=== PATIENT | female | born 1980 | race Caucasian/White ===

== ENCOUNTER 2022-05-08 11:05 | Emergency (ER) | payer BC, SELFPAY ==
[2022-05-08 11:35] VITALS: BP 129/80; PULSE 89; RESP 18; TEMP 36.2; O2SAT 99; BMI 39.1
--- NOTE | 2022-05-08 11:41 | CRLHL7_ITS ---
For Patients: As a result of the Century Cures Act, medical imaging exams and procedure reports are released immediately into your electronic medical record. You may view this report before your referring provider. If you have questions, please contact your health care provider. Indication: RT FOOT PAIN POST TRAUMA Technique: Right foot 3 views. Comparison: None Findings: Plantar calcaneal spur. No fracture. Alignment normal. Bone island in the cuboid. Impression: No sign of acute injury. Dictated by Yoseph Leggett MD @ 05/08/2022 12:59:13 PM (Electronically Signed)
--- NOTE | 2022-05-09 00:23 | ED_ITS ---
HPI - Extremity Injury (Lower) General Chief Complaint: Extremity Pain/Injury, Lower Stated Complaint: Fell, right foot injury Time Seen by Provider: 05/08/22 12:45 History of Present Illness HPI Narrative: 41-year-old woman presenting to the emergency department with significant other with complaint of pain in the right foot. She believes she has sprained her right foot not injured her ankle. Apparently had left the house and had to return for getting something, somehow rolled her foot upon reentry. She describes a rolling over the medial distal aspect of her right foot. She has never injured this before. Is not able to bear weight. Has sustained a left ankle sprain before. No other injuries occurred. Has not treated this noting that she does not like to take medications. Has received an ice pack prior to my evaluation as well as imaging of her foot. By my read by the time I am seeing her in the three-view of the right foot a do not see any acute bony abnormality. There is calcaneal spur. Related Data Home Medications Medication Instructions Recorded Confirmed No Known Home Medications 05/08/22 05/08/22 Allergies Allergy/AdvReac Type Severity Reaction Status Date / Time No Known Drug Allergies Allergy Verified 05/08/22 11:41 Exam Narrative: Exam Narrative: Pleasant. Of good energy. Seated in a wheelchair. Ice pack on dorsal distal right foot. Breathing easily. Speaking easily. Cranial nerves 2-12 intact. Examining right lower extremity there is no tenderness about the ankle or to stressors of the calcaneus. No base of 5th metatarsal tenderness or over the navicular.. She does have marked tenderness on the instep of her foot on the plantar surface. Tenderness also along the distal aspects of the 1st and 2nd metatarsal. Flexion extension of the 2nd toe causes pain. Mild swelling over the distal forefoot. Const: Vital Signs, click to edit/add: Vital Signs - 24 hr 05/08/22 11:35 Temperature 97.1 F L Pulse Rate [Left P ulse Oximeter] 89 Respiratory Rate 18 Blood Pressure [Ri ght Upper Arm] 129/80 Pulse Oximetry 99 Oxygen Delivery Me thod Room Air Documenting provider has reviewed patient's vital signs: yes Course Course Hospital Course: X-rays reviewed as above. Did give Tyson wrap and wrapped on the ice pack. Dispensed postop sandal and crutches and after discussion of further mobility concerns did write a prescription for a kneeling scooter. Vital Signs Vital signs: Initial Vital Signs Temperature 97.1 F L 05/08/22 11:35 Temperature Source Temporal Artery Scan 05/08/22 11:35 Pulse Rate 89 05/08/22 11:35 Respiratory Rate 18 05/08/22 11:35 Blood Pressure 129/80 05/08/22 11:35 Blood Pressure Mean 96 05/08/22 11:35 Blood Pressure Position Sitting 05/08/22 11:35 Pulse Oximetry 99 05/08/22 11:35 Oxygen Delivery Method 05/08/22 11:35 Vital Signs Temperature 97.1 F L 05/08/22 11:35 Pulse Rate 89 05/08/22 11:35 Respiratory Rate 18 05/08/22 11:35 Blood Pressure 129/80 05/08/22 11:35 Pulse Oximetry 99 05/08/22 11:35 Oxygen Delivery Method 05/08/22 11:35 Temperature 97.1 F L 05/08/22 11:35 Pulse Rate 89 05/08/22 11:35 Respiratory Rate 18 05/08/22 11:35 Blood Pressure 129/80 05/08/22 11:35 Pulse Oximetry 99 05/08/22 11:35 Oxygen Delivery Method 05/08/22 11:35 MDM - Extremity Injury (Lower) Medical Records Attestation: I reviewed the patient's medical records. Discharge Plan Discharge Clinical Impression: Foot sprain Patient Disposition: Home w/ Parent or Adult Condition: Stable Additional Instructions: As discussed ice 2-3 times daily over the next few days. Elevate at rest. Rest otherwise by using crutches over the next few days and then slowly start bearing more weight. If truly not improved in 7-10 days please follow-up for re-evaluation. Prescription also written for kneeling walker/scooter if needed. See handout on rehabilitation/exercises. Prescriptions: No Action No Known Home Medications Stand Alone Forms: [employer] Info Instructions
== END 2022-05-08 13:35 | disposition home or self-care (01) ==
PROVIDERS: Emergency Provider Family Medicine
DX: S93.601A Unspecified sprain of right foot, initial encounter (principal); X50.0XXA Overexertion from strenuous movement or load, initial encounter
CPT/HCPCS: 73630; 99283